=== PATIENT | male | born 1990 | race Caucasian/White ===

== ENCOUNTER 2016-12-30 06:39 | Emergency (ER) | payer BC ==
[~2016-12-30 06:39] MED LIST: ACETAMINOPHEN PO; ADVAIR INH; ALBUTEROL 0.5ML INH; ALBUTEROL 0.5ML NEB; ALBUTEROL MININEB; ALBUTEROL MININEB NEB; ALBUTEROL0.83 MG/ML IH; ALBUTEROL17 G1 IH; ALBUTEROL17 G1 INH; ALBUTEROL17 GM; ALBUTEROL17 GM INH; ALBUTEROL2.5 MG/0.5 IH; AMOXICILLIN PO; AZMACORT20 GM INH; CLARITIN10 M2 PO; COMBIVENT MININEB INH; DOXYCYCLINE MO100 MG PO; DOXYCYCLINE PO; FLEXERIL PO; FLEXERIL10 MG PO; FLOVENT HFA12 GM INH; GUAIFEN-P-EPHE480 ML PO; HUMIBID-LA600 MG PO; IBUPROFEN; IBUPROFEN PO; LEVAQUIN750 MG PO; MEDROL DOSE PACK PO; MEDROL PO; MEDROL4 MG/DOSE- PO; MOTRIN600 MG PO; NO MEDICATIONS; OMEPRAZOLE20 M2 PO; PHENERGAN DM1 ML PO; PHENERGAN W/CO120 ML PO; PHENERGAN/CODEIN5 ML PO; PHENERGAN25 MG PO; PREDNISONE PO; PREDNISONE1 MG PO; PREDNISONE10 MG/DOSE; PREDNISONE50 MG PO; PRILOSEC20 M1 PO; PRIMATENE MIST; PROVENTIL INH0.5 ML; PROVENTIL0.83 MG/ML IH; ROBITUSSIN A-C S5 ML PO; ROBITUSSIN PO; ROBITUSSIN-DM118 M1 PO; SINGULAIR PO; SYMBICORT INH; VIBRAMYCIN100 M1 PO; VISTARIL PO; VOLTAREN75 MG PO; ZITHROMAX PO; ZITHROMAX1 G/PKT PO
== END 2016-12-30 06:40 | disposition home or self-care (01) ==
LOC: SED 06:39
DX: J45.901 Unspecified asthma with (acute) exacerbation (principal); F32.9 Major depressive disorder, single episode, unspecified; R03.0 Elevated blood-pressure reading, without diagnosis of hypertension; F41.9 Anxiety disorder, unspecified; F17.200 Nicotine dependence, unspecified, uncomplicated
CPT/HCPCS: 94640; 99283

== ENCOUNTER 2016-12-30 17:53 | Emergency (ER) | payer BC | END 2016-12-30 18:41 | disposition home or self-care (01) | LOC: SED 17:53 | DX: J45.901 Unspecified asthma with (acute) exacerbation (principal); F17.210 Nicotine dependence, cigarettes, uncomplicated | CPT/HCPCS: 94640; 99283; J1100 ==